=== PATIENT | female | born 1960 | race Caucasian/White ===

== ENCOUNTER 2017-03-07 19:11 | Emergency (ER) | payer OTHER ==
[2017-03-07] MEDS ORDERED: OSELTAMIVIR PHOSPHATE 75 MG CAPSULE PO ONE ×2 (20:31→20:34)
--- NOTE | 2017-03-07 20:36 | ERNOTE ---
Date of Service: 03/07/17 Time Seen by Provider: 03/07/17 20:02 Stated Complaint: CHEST PAIN, DIZZINESS Presenting Symptoms:: cough, sore throat, fever Source: patient, RN notes reviewed Exam Limitations: no limitations Immunizations: IMMUNIZATION HX Immunizations Up to Date Yes History of Influenza Vaccine Yes Hx Pneumococcal Vaccination No Allergies/Adverse Reactions: Allergies Sulfa (Sulfonamide Antibiotics) Allergy (Verified 03/07/17 19:31) tetracaine Allergy (Verified 03/07/17 19:31) Home Medications: HOME MEDICATIONS Oseltamivir Phosphate [Tamiflu] 75 mg PO BID #9 cap 03/07/17 [Last Taken Unknown ] - History of Present Ilness Narrative: 57 year old female presents to the ED for chest pain. She then also reports having a cough, sore throat, fever, chills and body aches that began this morning. She reports that her has influenza A. The chest pain occurs with the cough. Date (Duration): 03/07/17 Frequency/Possible Cause: Reports: illness exposure Prior Treatment: Denies: recently seen, currently on antibiotics Review of Systems - Review of Systems Constitutional: Present: fever, chills, fatigue, malaise EYE: Absent: eye pain, eye discharge ENT: Present: sore throat. Absent: ear pain, nose congestion Respiratory: Present: cough. Absent: shortness of breath, wheezing Cardiology: Present: chest pain. Absent: palpitations, syncope Gastrointestinal/Abdominal: Present: diarrhea. Absent: nausea, vomiting, abdominal pain Genitourinary: Absent: dysuria, hematuria Musculoskeletal: Present: muscle pain. Absent: joint pain Skin: Absent: rash, lesions Neurological: Present: headache, dizziness/light-headedness Endocrine: Present: no symptoms reported Hematologic/Lymphatic: Present: no symptoms reported Psych: Present: no symptoms reported - Patient's Past Medical History Patient History - Medical: Anxiety, Depression, Migraines Patient History - Cardiac/Respiratory: No pertinent hx Patient History - Cancer: No Hx of Cancer Patient History - Surgical Procedures: Noncontributory Patient History - Other: None LMP (females 10-50): Menopausal - Social History Living Situations: spouse Psych History: Hx of Anxiety, Hx of Depression Smoking Status: Never smoker Alcohol Use: occasionally Drug Use: none - Immunizations Immunizations Up to Date: Yes Hx Pneumococcal Vaccination: No History of Influenza Vaccine: Yes Physical Exam - Physical Exam General Appearance: Present: wd/wn, alert, other - In no acute distress but appears to not feel well Head Exam: Present: normal inspection Eye Exam: Normal inspection: bilateral Ears, Nose, Throat: Present: pharyngeal erythema. Absent: abnormal TM (R), abnormal TM (L), nasal congestion, sinus pain/drainage, pharyngeal swelling, dry mucous membranes Neck: Present: normal inspection, nontender, supple Respiratory: Present: no respiratory distress, normal breath sounds, no accessory muscle use, lungs clear Cardiovascular/Chest: Present: regular rate, rhythm, no murmur Extremity Exam: Present: normal inspection, no edema Neurological Exam: Present: alert, oriented, normal mood/affect, no motor/ sensory deficits Skin Exam: Present: normal color, warm/dry ED Progress - Results and Orders Patient's Lab Results:: I have reviewed the patient's lab results. - Vital Signs Patient's Vital Signs:: I have reviewed the patient's vital signs. Vital Signs: Vital Signs 03/07/17 03/07/17 19:18 19:48 Temperature 38.7 C H Pulse Rate 128 H 112 H Respiratory 14 Rate Blood Pressure 141/86 137/68 O2 Sat by Pulse 97 98 Oximetry - EKG EKG: other - Sinus tach EKG read: Reviewed by me - Progress/Reassessment Chief Complaint: Cough Progress:: Unchanged Plan - Plan Plan: Patient is negative for influenza but given her symptoms and the fact that her has it, will treat as such with Tamiflu. Offered Tylenol for fever, patient declined because she plans to take Tylenol PM when she gets home. Departure Clinical Impression: Influenza - Departure Disposition: Home self-care Condition: Stable Instructions: Influenza, Adult, [id number], Form - Excuse from Work, School, or Physical Activity Additional Instructions: Drink plenty of liquids Rest Tylenol for fever You should not return to work until you have been without a fever for 24 hours Return for worsening symptoms Prescriptions: Oseltamivir Phosphate [Tamiflu] 75 mg PO BID #9 cap
[2017-03-07 20:39] VITALS: BP 127/74
== END 2017-03-07 20:43 | disposition home or self-care (01) ==
LOC: ER 19:11
DX: J11.1 Influenza due to unidentified influenza virus with other respiratory manifestations